=== PATIENT | male | born 1980 | race Caucasian/White ===

== ENCOUNTER 2020-01-17 06:03 | Emergency (ER) | payer BC, OTHER ==
[~2020-01-17] VITALS: Ht 185.4 cm; Wt 79.0 kg
--- NOTE | 2020-01-17 06:17 | NUR ---
pt reports waking up this morning and briefly coughing then have excruciating pain shoot down the right side of his back. pt states pain is now a 3/10 but that when it first happened he felt as though he was going to pass out from it. pt has a bruise on his right lower back d/t a fall while sleep walking about a week ago. pt placed on spo2/bp monitoring. nad, wctm. bed in lowest, call light on lap. provided warm blankets for comfort.
--- NOTE | 2020-01-17 06:20 | NUR ---
ingrid dempsey at bs for eval and poc.
[2020-01-17] MEDS ORDERED: KETOROLAC 30 MG/1 ML IM ONE (06:30)
[2020-01-17] MEDS ORDERED: KETOROLAC 30 MG/1 ML ONE (06:37)
--- NOTE | 2020-01-17 07:07 | NUR ---
report to demarco freeman, care transferred at this time.
--- NOTE | 2020-01-17 07:30 | NUR ---
SHIFT REPORT RECEIVED. PT RESTING IN BED, AWAITING ALL RADIOLOGY RESULTS. CONT TO MONITOR.
--- NOTE | 2020-01-17 08:10 | NUR ---
RECEIVED REPORT FROM ZHENG SALAZAR, PLAN OF CARE DISCUSSED
[2020-01-17] MEDS ORDERED: HALOPERIDOL 5 MG/ML ONE (08:19)
[2020-01-17 08:30] VITALS: BP 137/80
--- NOTE | 2020-01-17 08:30 | NUR ---
Patient/Caregiver given discharge instructions and they have confirmed that they understand the instructions. Patient ambulatory with steady gait.
== END 2020-01-17 08:34 | disposition home or self-care (01) ==
LOC: ED 06:33
DX: S22.31XA Fracture of one rib, right side, initial encounter for closed fracture (principal); R07.89 Other chest pain; R05 Cough; X58.XXXA Exposure to other specified factors, initial encounter; Y93.89 Activity, other specified; Y92.89 Other specified places as the place of occurrence of the external cause; Y99.8 Other external cause status
CPT/HCPCS: 71101; 93005; 96372; 99283; J1885